=== PATIENT | male | born 1935 | race Caucasian/White ===

== ENCOUNTER 2016-02-26 10:38 | Outpatient (RCR) | payer OTHER ==
[~2016-02-26 10:38] MED LIST: ASPIRIN81 MG ORAL; SIMVASTATIN20 MG ORAL
== END 2016-03-17 | disposition home or self-care (01) ==
LOC: PTY 10:38
DX: M54.2 Cervicalgia (principal); M25.559 Pain in unspecified hip; M48.02 Spinal stenosis, cervical region; I48.91 Unspecified atrial fibrillation; R10.2 Pelvic and perineal pain

== ENCOUNTER 2016-04-17 11:00 | Outpatient (RCR) | payer OTHER | END 2016-05-15 | disposition home or self-care (01) | LOC: PTY 11:00 | DX: M54.2 Cervicalgia (principal); M25.559 Pain in unspecified hip; M48.02 Spinal stenosis, cervical region; I48.91 Unspecified atrial fibrillation; R10.2 Pelvic and perineal pain ==